=== PATIENT | male | born 1970 | race Caucasian/White ===

== ENCOUNTER 2021-10-16 15:04 | Emergency (ER) | payer OTHER ==
[~2021-10-16] VITALS: Ht 182.9 cm; Wt 102.1 kg
== END 2021-10-16 17:35 | disposition home or self-care (01) ==
LOC: ED 15:04
DX: S20.219A Contusion of unspecified front wall of thorax, initial encounter (principal); S50.312A Abrasion of left elbow, initial encounter; V43.92XA Unspecified car occupant injured in collision with other type car in traffic accident, initial encounter
CPT/HCPCS: 71046; 73080; 99284-25